=== PATIENT | female | born 1960 | race Caucasian/White ===

== ENCOUNTER → 2020-06-28 09:22 | Outpatient (CLI) | payer BC, SELFPAY ==
--- NOTE | ~2020-06-28 | DEXA_ITS ---
Bone Density Report Name: Rosalia Zhang Age: 59 Sex: Female Ethnicity: White Date of : 1960 Indication: postmenopausal osteoporosis; monitoring treatment; height loss; Referring Provider: ALESSANDRO, CAITLIN Study: Bone densitometry was performed. Exam Date: June 28, 2020 Accession number: [id number] Bone Density: Region BMD T-score Z-score Classification AP Spine (L1-L4) 0.852 -1.8 -0.2 Osteopenia Femoral Neck (Left) 0.615 -2.1 -0.8 Osteopenia Total Hip (Left) 0.769 -1.4 -0.4 Osteopenia Femoral Neck (Right) 0.645 -1.8 -0.5 Osteopenia Total Hip (Right) 0.784 -1.3 -0.3 Osteopenia Total Hip Mean 0.777 -1.4 -0.4 Osteopenia Total Forearm (Right) 0.372 -3.8 -2.3 1/3 Forearm (Right) 0.471 -3.7 -2.2 UD Forearm (Right) 0.214 -3.9 -2.8 World Health Organization criteria for BMD impression classify patients as: Normal (T-score at or above -1.0), Osteopenia (T-score between -1.0 and -2.5), or Osteoporosis (T-score at or below -2.5). 10-year Fracture Risk: FRAX not reported because: Treated for osteoporosis Previous Exams: Region Exam Age BMD T-score BMD Change BMD Change Date g/cm2 vs Baseline vs Previous AP Spine(L1-L4) 06/28/2020 59 0.852 -1.8 -0.022 -0.025 11/09/2018 58 0.877 -1.5 0.002 0.002 10/25/2016 56 0.874 -1.6 Total Hip(Left) 06/28/2020 59 0.769 -1.4 -0.071 -0.043 11/09/2018 58 0.811 -1.1 -0.028* -0.028* 10/25/2016 56 0.840 -0.8 Total Hip(Right) 06/28/2020 59 0.784 -1.3 -0.023 -0.010 11/09/2018 58 0.794 -1.2 -0.013 -0.013 10/25/2016 56 0.807 -1.1 Total Forearm(Right) 06/28/2020 59 0.372 -3.8 -0.042* -0.042* 12/28/2018 58 0.414 -2.9 *Denotes significance at 95% confidence level, LSC for AP Spine = 0.022 g/cm2, LSC for Total Hip = 0.027 g/cm2 Clinical Information Provided by Patient: Smokes Is being treated for osteoporosis Has used the following medications: Fosamax (i.e. alendronate), Vitamin D, Calcium Patient maximum height was 66 Menopause Age: 37 Drinks caffeinated beverages Onset of menses at age 11 Number of children 0 Impression: The patient has low bone mass, based on the Left Femoral Neck T-score. The patient has risk factors, including: smoking. No significant bone loss was o
--- NOTE | ~2020-06-28 | DEXA_ITS ---
Bone Density Report Name: Rosalia Zhang Age: 59 Sex: Female Ethnicity: White Date of : 1960 Indication: osteopenia; monitoring treatment; height loss; postmenopausal Referring Provider: ALESSANDRO, CAITLIN Study: Bone densitometry was performed. Exam Date: June 28, 2020 Accession number: [id number] Bone Density: Region BMD T-score Z-score Classification AP Spine (L1-L4) 0.852 -1.8 -0.2 Osteopenia Femoral Neck (Left) 0.615 -2.1 -0.8 Osteopenia Total Hip (Left) 0.769 -1.4 -0.4 Osteopenia Femoral Neck (Right) 0.645 -1.8 -0.5 Osteopenia Total Hip (Right) 0.784 -1.3 -0.3 Osteopenia Total Hip Mean 0.777 -1.4 -0.4 Osteopenia World Health Organization criteria for BMD impression classify patients as: Normal (T-score at or above -1.0), Osteopenia (T-score between -1.0 and -2.5), or Osteoporosis (T-score at or below -2.5). 10-year Fracture Risk: FRAX not reported because: Treated for osteoporosis Previous Exams: Region Exam Age BMD T-score BMD Change BMD Change Date g/cm2 vs Baseline vs Previous AP Spine(L1-L4) 06/28/2020 59 0.852 -1.8 -0.022 -0.025 11/09/2018 58 0.877 -1.5 0.002 0.002 10/25/2016 56 0.874 -1.6 Total Hip(Left) 06/28/2020 59 0.769 -1.4 -0.071 -0.043 11/09/2018 58 0.811 -1.1 -0.028* -0.028* 10/25/2016 56 0.840 -0.8 Total Hip(Right) 06/28/2020 59 0.784 -1.3 -0.023 -0.010 11/09/2018 58 0.794 -1.2 -0.013 -0.013 10/25/2016 56 0.807 -1.1 *Denotes significance at 95% confidence level, LSC for AP Spine = 0.022 g/cm2, LSC for Total Hip = 0.027 g/cm2 Clinical Information Provided by Patient: Smokes Is being treated for osteoporosis Has used the following medications: Fosamax (i.e. alendronate), Vitamin D, Calcium Patient maximum height was 66 Menopause Age: 37 Drinks caffeinated beverages Onset of menses at age 11 Number of children 0 Impression: The patient has low bone mass, based on the Left Femoral Neck T-score. The patient has risk factors, including: smoking. No significant bone loss was observed. Discussion: PATIENT UNDER TREATMENT WITH NO SIGNIFICANT BMD LOSS SINCE LAST EXAM. In an untreated patient, BMD typically declines with age. A lack of decline or gain is usually a sign that treatment is efficacious and fracture risk is reduced. It is important to ask patients whether they are taking
== END ==
PROVIDERS: Visit Provider Internal Medicine
DX: E21.3 Hyperparathyroidism, unspecified (principal); M85.88 Other specified disorders of bone density and structure, other site; M85.852 Other specified disorders of bone density and structure, left thigh; M85.851 Other specified disorders of bone density and structure, right thigh
CPT/HCPCS: 77080; 77081